=== PATIENT | female | born 1955 | race African-American/Black ===

== ENCOUNTER → 2017-04-16 | Outpatient (CLI) | payer OTHER ==
--- NOTE | 2017-04-19 08:38 | MM ---
Reason for exam: screening (asymptomatic). Last mammogram was performed 5 years and 4 months ago. History: Patient is postmenopausal. Benign FNA biopsy of the left breast, June 24, 2001. Benign ultrasound-guided core biopsy of the left breast, June 24, 2001. Silicone gel implant in the left breast. 2 core biopsies of the left breast. Taking estrogen for 3 years beginning at age 53. Taking progesterone for 3 years beginning at age 53. Physical Findings: A clinical breast exam by your physician is recommended on an annual basis and results should be correlated with mammographic findings. MG Screening Mammo Implant/CAD Bilateral CC and MLO view(s) were taken. ID view(s) were taken of the left breast. Prior study comparison: December 17, 2011, CAD bilateral diagnostic mammogram. July 10, 2008, bilateral diagnostic digital mammog. There are scattered fibroglandular densities. There is chronic nodularity in the right breast. Implant in the left revised since 2011. No significant changes when compared with prior studies. ASSESSMENT: Benign, BI-RAD 2 RECOMMENDATION: Routine screening mammogram of both breasts.
== END | disposition home or self-care (01) ==
LOC: RADMAMWWP 12:39
PROVIDERS: ATTEND Family Medicine
DX: Z12.31 Encounter for screening mammogram for malignant neoplasm of breast (principal)

== ENCOUNTER 2017-08-08 16:05 | Emergency (ER) | payer OTHER ==
--- NOTE | 2017-08-08 16:33 | ED ---
General Adult HPI - General Chief complaint: Shortness of Breath Stated complaint: SOB Time Seen by Provider: 08/08/17 16:05 Source: patient, RN notes reviewed Mode of arrival: wheelchair Limitations: no limitations - History of Present Illness Initial comments: This is a 62-year-old female presents emergency department with past history significant for high blood pressure. Patient comes in today complaining that she was dizzy today and has been on and off for the last couple of weeks. Patient states it comes it only lasts for a few seconds and then it subsides. Patient denies any near syncopal episode. Patient also states she feels as though she somewhat short of breath when these episodes occur. Patient states currently she is not short of breath. 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 Patient states she's had no recent fever or chill. Patient states her legs are of normal size however daughter thinks they are bigger than normal. Patient denies any abdominal pain patient denies nausea vomiting diarrhea. Patient denies any recent fever chills or cough. Patient's main reason for coming in today is the occasional episodes of dizziness and the sensation of being short of breath. As the patient speaks me she's oxygenating 98% on room air and speaking in full sentences without a problem not appearing in any distress and a heart rate in the 80s - Related Data Home Medications Medication Instructions Recorded Confirmed HYDROcodone/APAP 10-325MG [[place] 1 tab PO DAILY PRN 08/08/17 08/08/17 10-325] Ibuprofen [Motrin] 800 mg PO TID PRN 08/08/17 08/08/17 Lisinopril [Zestril] 20 mg PO DAILY 08/08/17 08/08/17 QUEtiapine FUMARATE [SEROquel] 200 mg PO HS 08/08/17 08/08/17 Terazosin HCl 1 mg PO DAILY 08/08/17 08/08/17 Venlafaxine HCl [Effexor XR] 37.5 mg PO DAILY 08/08/17 08/08/17 amLODIPine [Norvasc] 10 mg PO DAILY 08/08/17 08/08/17 Allergies Allergy/AdvReac Type Severity Reaction Status Date / Time morphine AdvReac Nausea & Verified 08/08/17 16:43 Vomiting Review of Systems ROS Statement: Those systems with pertinent positive or pertinent negative responses have been documented in the HPI. ROS Other: All systems not noted in ROS Statement are negative. Past Medical History Past Medical History: Hypertension Additional Past Medical History / Comment(s): chronic back pain History of Any Multi-Drug Resistant Organisms: None Reported Past Surgical History: Hysterectomy, Tonsillectomy Additional Past Surgical History / Comment(s): bilateral foot surgery Past Psychological History: No Psychological Hx Reported Smoking Status: Former smoker Past Alcohol Use History: None Reported Past Drug Use History: None Reported General Exam - General Exam Comments Initial Comments: GENERAL: Patient is well-developed and well-nourished. Patient is nontoxic and well- hydrated and is in no acute distress. Patient does not appear to be having any difficulty breathing and she is giving me her history in non-stop conversation EYES: The sclera were anicteric and conjunctiva were pink and moist. Extraocular movements were intact and pupils were equal round and reactive to light. Eyelids were unremarkable. PULMONARY: Unlabored respirations. Good breath sounds bilaterally. No audible rales rhonchi or wheezing was noted. CARDIOVASCULAR: There is a regular rate and rhythm without any murmurs gallops or rubs. Patient had bilateral radial pulses that were equal ABDOMEN: Soft and nontender with normal bowel sounds. No palpable organomegaly was noted. There is no palpable pulsatile mass. SKIN: Skin is clear with no lesions or rashes and otherwise unremarkable. NEUROLOGIC: Patient is alert and oriented x3. Cranial nerves II through XII are grossly intact. Motor and sensory are also intact. Normal speech, volume and content. Symmetrical smile. MUSCULOSKELETAL: Normal extremities with adequate strength and full range of motion. n minimal edema. LYMPHATICS: No significant lymphadenopathy is noted PSYCHIATRIC: Normal psychiatric evaluation. Normal interpersonal interactions appears functionally intact in deals appropriately with others. No signs of depression. No signs of anxiety. Limitations: no limitations Course Vital Signs 08/08/17 16:11 Temperature 98.0 F Pulse Rate 87 Respiratory 22 Rate Blood Pressure 142/72 O2 Sat by Pulse 97 Oximetry Medical Decision Making - Medical Decision Making EKG shows normal sinus rhythm at a rate of 80 bpm OR interval 172 QRS is 94 QT interval 370 QTC is 435. There is no ST segment elevation or depression. Patient had no symptoms while in the emergency department. - Lab Data Result diagrams: 08/08/17 17:00 08/08/17 17:00 Lab Results 08/08/17 08/08/17 08/08/17 Range/Units 17:00 17:00 17:00 WBC 10.0 (3.8-10.6) k/uL RBC 4.38 (3.80-5.40) m/uL Hgb 11.7 (11.4-16.0) gm/dL Hct 36.4 (34.0-46.0) % MCV 83.1 (80.0-100.0) fL MCH 26.6 (25.0-35.0) pg MCHC 32.0 (31.0-37.0) g/dL RDW 13.5 (11.5-15.5) % Plt Count 239 (150-450) k/uL Neutrophils % 70 % Lymphocytes % 18 % Monocytes % 6 % Eosinophils % 4 % Basophils % 0 % Neutrophils # 7.0 (1.3-7.7) k/uL Lymphocytes # 1.8 (1.0-4.8) k/uL Monocytes # 0.6 (0-1.0) k/uL Eosinophils # 0.4 (0-0.7) k/uL Basophils # 0.0 (0-0.2) k/uL PT (9.0-12.0) sec INR (<1.2) APTT (22.0-30.0) sec Sodium 143 (137-145) mmol/L Potassium 4.0 (3.5-5.1) mmol/L Chloride 107 (98-107) mmol/L Carbon Dioxide 28 (22-30) mmol/L Anion Gap 8 mmol/L BUN 15 (7-17) mg/dL Creatinine 0.68 (0.52-1.04) mg/dL Est GFR (CKD-EPI)AfAm >90 (>60 ml/min/1.73 sqM) Est GFR (CKD-EPI)NonAf >90 (>60 ml/min/1.73 sqM) Glucose 109 H (74-99) mg/dL Calcium 9.5 (8.4-10.2) mg/dL Magnesium 1.7 (1.6-2.3) mg/dL Total Bilirubin 0.2 (0.2-1.3) mg/dL AST 24 (14-36) U/L ALT 28 (9-52) U/L Alkaline Phosphatase 86 (38-126) U/L Total Creatine Kinase 228 H (30-135) U/L CK-MB (CK-2) 2.6 H* (0.0-2.4) ng/mL CK-MB (CK-2) Rel Index 1.1 Troponin I <0.012 (0.000-0.034) ng/mL NT-Pro-B Natriuret Pep pg/mL Total Protein 6.5 (6.3-8.2) g/dL Albumin 4.1 (3.5-5.0) g/dL 08/08/17 08/08/17 Range/Units 17:00 17:00 WBC (3.8-10.6) k/uL RBC (3.80-5.40) m/uL Hgb (11.4-16.0) gm/dL Hct (34.0-46.0) % MCV (80.0-100.0) fL MCH (25.0-35.0) pg MCHC (31.0-37.0) g/dL RDW (11.5-15.5) % Plt Count (150-450) k/uL Neutrophils % % Lymphocytes % % Monocytes % % Eosinophils % % Basophils % % Neutrophils # (1.3-7.7) k/uL Lymphocytes # (1.0-4.8) k/uL Monocytes # (0-1.0) k/uL Eosinophils # (0-0.7) k/uL Basophils # (0-0.2) k/uL PT 10.2 (9.0-12.0) sec INR 1.0 (<1.2) APTT 23.4 (22.0-30.0) sec Sodium (137-145) mmol/L Potassium (3.5-5.1) mmol/L Chloride (98-107) mmol/L Carbon Dioxide (22-30) mmol/L Anion Gap mmol/L BUN (7-17) mg/dL Creatinine (0.52-1.04) mg/dL Est GFR (CKD-EPI)AfAm (>60 ml/min/1.73 sqM) Est GFR (CKD-EPI)NonAf (>60 ml/min/1.73 sqM) Glucose (74-99) mg/dL Calcium (8.4-10.2) mg/dL Magnesium (1.6-2.3) mg/dL Total Bilirubin (0.2-1.3) mg/dL AST (14-36) U/L ALT (9-52) U/L Alkaline Phosphatase (38-126) U/L Total Creatine Kinase (30-135) U/L CK-MB (CK-2) (0.0-2.4) ng/mL CK-MB (CK-2) Rel Index Troponin I (0.000-0.034) ng/mL NT-Pro-B Natriuret Pep 148 pg/mL Total Protein (6.3-8.2) g/dL Albumin (3.5-5.0) g/dL Disposition Clinical Impression: Dizziness Disposition: HOME SELF-CARE Instructions: Dizziness (ED) Referrals: Cele Harper MD [Primary Care Provider] - 1-2 days Time of Disposition: 18:25
[2017-08-08 17:16] LABS: Basophils % (A) 0 %; Eosinophils # (A) 0.4 k/uL (0-0.7); Eosinophils % (A) 4 %; HCT 36.4 % (34.0-46.0); HGB 11.7 gm/dL (11.4-16.0); Lymphocytes # (A) 1.8 k/uL (1.0-4.8); Lymphocytes % (A) 18 %; MCH 26.6 pg (25.0-35.0); MCV 83.1 fL (80.0-100.0); Mean Platelet Volume 7.2; Monocytes # (A) 0.6 k/uL (0-1.0); Monocytes % (A) 6 %; Neutrophils % (A) 70 %; Platelet Count 239 k/uL (150-450); RBC 4.38 m/uL (3.80-5.40); RDW 13.5 % (11.5-15.5)
[2017-08-08 17:26] LABS: ALT 28 U/L (9-52); AST 24 U/L (14-36); Albumin 4.1 g/dL (3.5-5.0); Alkaline Phosphatase 86 U/L (38-126); Anion Gap 8 mmol/L; Blood Urea Nitrogen 15 mg/dL (7-17); Calcium 9.5 mg/dL (8.4-10.2); Carbon Dioxide 28 mmol/L (22-30); Chloride 107 mmol/L (98-107); Creatine Kinase 228 U/L (30-135); Glucose 109 mg/dL (74-99); Magnesium 1.7 mg/dL (1.6-2.3); Partial Thromboplastin Time 23.4 sec (22.0-30.0); Prothrombin Time 10.2 sec (9.0-12.0); Sodium 143 mmol/L (137-145); Total Bilirubin 0.2 mg/dL (0.2-1.3); Total Protein 6.5 g/dL (6.3-8.2)
[2017-08-08 17:37] LABS: Troponin I <0.012 ng/mL (0.000-0.034)
[2017-08-08 17:39] LABS: Creatine Kinase MB 2.6 ng/mL (0.0-2.4)
--- NOTE | 2017-08-08 17:42 | XR ---
EXAMINATION TYPE: XR chest 2V DATE OF EXAM: 08/08/2017 COMPARISON: 04/09/2015 HISTORY: To be TECHNIQUE: Frontal and lateral views of the chest are obtained. FINDINGS: There is stable elevation of the left hemidiaphragm and small left pleural effusion/pleura l-parenchymal opacity. There is unchanged rightward mediastinal shift. No acute finding is seen in co mparison to the prior. No new focal consolidation, right pleural effusion or pneumothorax. Cardiomedi astinal silhouette is within normal limits. Mild multilevel degenerative changes of the thoracic spin e. IMPRESSION: Chronic changes of the left hemithorax with no acute cardiopulmonary process.
--- NOTE | 2017-08-08 17:44 | CT ---
EXAMINATION TYPE: CT brain wo con DATE OF EXAM: 08/08/2017 COMPARISON: NONE HISTORY: Dizziness. CT DLP: 1041.9 mGycm Automated exposure control for dose reduction was used. TECHNIQUE: CT scan of the head is performed without contrast. FINDINGS: There is no acute intracranial hemorrhage, mass effect, or midline shift identified. The ventricles and sulci are within normal limits in size. The globes are intact and the visualized sinuses are toro ar. IMPRESSION: No acute intracranial hemorrhage, mass effect, or midline shift is seen.
[2017-08-08 18:32] VITALS: BP 151/70; PULSE 72; RESP 18; TEMP 97.8
== END 2017-08-08 18:32 | disposition home or self-care (01) ==
LOC: EC 16:05
DX: R42 Dizziness and giddiness (principal); R06.02 Shortness of breath; I10 Essential (primary) hypertension; Z87.891 Personal history of nicotine dependence; Z79.899 Other long term (current) drug therapy; Z88.5 Allergy status to narcotic agent
CPT/HCPCS: 36415; 70450; 71046; 80053; 82550; 82553; 83735; 83880; 84484; 85025; 85610; 85730; 93005; 99285

== ENCOUNTER 2017-12-09 22:15 | Emergency (ER) | payer OTHER ==
[2017-12-09 22:31] VITALS: BP 181/68; PULSE 97; RESP 18; TEMP 98.6
[2017-12-09] MEDS ORDERED: DIPH,PERTUS(ACELL)TETVAC-LF 0.5 ML VIAL IM ONE (23:02)
[2017-12-09] MEDS ORDERED: LIDOCAINE 1% (PF) 10MG/ML VIAL SQ STA (23:23)
[2017-12-09] MEDS ORDERED: LIDOCAINE 1% INJ 10MG/ML (20 ML MDV) SQ ONE (23:28)
--- NOTE | 2017-12-09 23:36 | ED ---
Wound/Laceration HPI - General Chief Complaint: Wound/Laceration Stated Complaint: finger lac Time Seen by Provider: 12/09/17 22:39 Source: patient, RN notes reviewed, old records reviewed Mode of arrival: ambulatory Limitations: no limitations - History of Present Illness Initial Comments: This patient is a 62 year old female with left index finger tip laceration after she cut it on a fur trimmer this evening. She reports that she has normal sensation and full ROM of finger. TDAP is not up to date. No other injury. - Related Data Home Medications Medication Instructions Recorded Confirmed HYDROcodone/APAP 10-325MG [[place] 1 tab PO DAILY PRN 08/08/17 08/08/17 10-325] Ibuprofen [Motrin] 800 mg PO TID PRN 08/08/17 08/08/17 Lisinopril [Zestril] 20 mg PO DAILY 08/08/17 08/08/17 QUEtiapine FUMARATE [SEROquel] 200 mg PO HS 08/08/17 08/08/17 Terazosin HCl 1 mg PO DAILY 08/08/17 08/08/17 Venlafaxine HCl [Effexor XR] 37.5 mg PO DAILY 08/08/17 08/08/17 amLODIPine [Norvasc] 10 mg PO DAILY 08/08/17 08/08/17 Allergies Allergy/AdvReac Type Severity Reaction Status Date / Time morphine AdvReac Nausea & Verified 12/09/17 22:31 Vomiting Review of Systems ROS Statement: Those systems with pertinent positive or pertinent negative responses have been documented in the HPI. ROS Other: All systems not noted in ROS Statement are negative. Past Medical History Past Medical History: Hypertension Additional Past Medical History / Comment(s): chronic back pain History of Any Multi-Drug Resistant Organisms: None Reported Past Surgical History: Hysterectomy, Tonsillectomy Additional Past Surgical History / Comment(s): bilateral foot surgery Past Psychological History: No Psychological Hx Reported Smoking Status: Former smoker Past Alcohol Use History: None Reported Past Drug Use History: None Reported General Exam - General Exam Comments Initial Comments: Well appearing 62 year old [place], no distress. Limitations: no limitations Head exam: Present: atraumatic, normocephalic, normal inspection Eye exam: Present: normal appearance, PERRL, EOMI. Absent: scleral icterus, conjunctival injection, periorbital swelling ENT exam: Present: normal exam, mucous membranes moist Neck exam: Present: normal inspection. Absent: tenderness, meningismus, lymphadenopathy Respiratory exam: Present: normal lung sounds bilaterally. Absent: respiratory distress, wheezes, rales, rhonchi, stridor Cardiovascular Exam: Present: regular rate, normal rhythm, normal heart sounds. Absent: systolic murmur, diastolic murmur, rubs, gallop, clicks Extremities exam: Present: normal inspection, full ROM, normal capillary refill. Absent: tenderness, pedal edema, joint swelling, calf tenderness Left Hand Wrist exam: Present: laceration Hand L/R Front: 1 - laceration (2cm) Back exam: Present: normal inspection Neurological exam: Present: alert, oriented X3, CN II-XII intact Course Vital Signs 12/09/17 22:29 Temperature 98.6 F Pulse Rate 97 Respiratory 18 Rate Blood Pressure 181/68 O2 Sat by Pulse 95 Oximetry Procedures - Laceration Laceration #1 Site: hand (left index finger) Size (cm): 2 Description: irregular Anesthetic Used: lidocaine 1% Anesthesia Technique: local infiltration (2) Amount (mls): 2 Pre-repair: wound explored, irrigated extensively Type of Sutures: vicryl Size of Sutures: 6-0 Number of Sutures: 3 Technique: simple, interrupted Patient Tolerated Procedure: well, no complications Medical Decision Making - Medical Decision Making This is a 62 year old female with left index finger laceration from fur trimmer. She has a 2cm laceration over tip, no nail involvement. Patient wound was irrigated and she was given TDAP.Wound well approximated with 3 stures. Tube Gauze and bacitracin applied. Discussed suture care and return parameter discussed including monitoring for infection. - Radiology Data Radiology results: report reviewed Soft tisuse laceration, no bony abnormalities. Disposition Clinical Impression: Finger laceration Disposition: HOME SELF-CARE Condition: Good Instructions: Care For Your Stitches (ED), Laceration (ED) Additional Instructions: Please return to the emergency room in 8-10 days to have sutures removed. Please leave wound covered for the first 24-48 hours and then leave open to air after that time. Please use clean soap and water to clean the suture area to prevent scabbing over the top of your sutures. Please watch for any signs of infection which may include but not limited to increased pain, swelling, redness , fever or chills. Please return to the emergency room if any signs of infection do occur. Please return to the emergency room for any other concerns or complications. Is patient prescribed a controlled substance at d/c from ED?: No When asked, does pt state using other controlled substances?: No If prescribed controlled substance>3 days was MAPS reviewed?: No If opioid is for acute pain is fill amount 7 days or less?: No If Rx opioid, was Start Talking consent form obtained?: No Referrals: Cele Harper MD [Primary Care Provider] - 1-2 days Time of Disposition: 23:35
--- NOTE | 2017-12-10 00:08 | XR ---
EXAMINATION TYPE: XR finger LT DATE OF EXAM: 12/09/2017 COMPARISON: NONE HISTORY: Laceration at the tip of the finger TECHNIQUE: 3 views FINDINGS: I see no fracture nor dislocation. Joint spaces are normal. There is some mild soft tissue deformity at the tip of the index finger. IMPRESSION: Soft tissue laceration. No fracture seen. No sign of a foreign body.
== END 2017-12-09 23:59 | disposition home or self-care (01) ==
LOC: EC 22:15
DX: S61.211A Laceration without foreign body of left index finger without damage to nail, initial encounter (principal); I10 Essential (primary) hypertension; Z87.891 Personal history of nicotine dependence; Z79.899 Other long term (current) drug therapy; Z88.5 Allergy status to narcotic agent; Z23 Encounter for immunization; Z53.8 Procedure and treatment not carried out for other reasons; W27.8XXA Contact with other nonpowered hand tool, initial encounter; Y92.89 Other specified places as the place of occurrence of the external cause
CPT/HCPCS: 73140; 90715; 99283; 12001; 90471; J2001

== ENCOUNTER → 2018-03-29 | Outpatient (CLI) | payer OTHER ==
--- NOTE | 2018-03-29 15:56 | MR ---
EXAMINATION TYPE: MR thoracic spine wo con DATE OF EXAM: 03/29/2018 2:00 PM COMPARISON: NONE HISTORY: Pain in thoracic spine, prior injury 2005 Multiplanar MultiSpin echo imaging of the thoracic spine was performed. Disc spaces: Mild multilevel degenerative disc desiccation noted with disc bulging at T5-6 through T1 0-11. No evidence of disc herniation or central stenosis. Ventral spondylosis identified. Spinal canal: No evidence for canal stenosis. No intrinsic or extrinsic lesion. Thoracic spinal cord: Thoracic spinal cord is of normal caliber and signal. Paraspinal soft tissues: No evidence for paraspinal mass. No destructive lesions seen. Vertebral segments: No evidence for fracture or bony lesion. IMPRESSION: 1. Disc desiccation as noted above disc bulging and spondylosis.
== END | disposition home or self-care (01) ==
LOC: RADMRIMAIN 13:15
PROVIDERS: ATTEND Physician Assistant
DX: M51.24 Other intervertebral disc displacement, thoracic region (principal); M47.814 Spondylosis without myelopathy or radiculopathy, thoracic region; Z88.5 Allergy status to narcotic agent
CPT/HCPCS: 72146

== ENCOUNTER → 2018-03-30 | Outpatient (CLI) | payer OTHER ==
--- NOTE | 2018-03-31 02:35 | MR ---
EXAMINATION TYPE: MR lumbar spine wo con DATE OF EXAM: 03/30/2018 COMPARISON: HISTORY: Low back pain TECHNIQUE: Multiplanar, multisequence images of the lumbar spine were acquired. Lumbar vertebra have fairly normal alignment. There is a few millimeter anterior subluxation of L4 in relation to L5. The lumbar nerve roots appear normal. The neuroforamina are fairly well-maintained. There is no compression fracture. There is no lumbar paraspinal mass. Posterior elements appear intac t. IMPRESSION: There is a mild degenerative first-degree L4-5 spondylolisthesis without change compared to 10/26/2014 . No fracture seen. No spinal stenosis.
== END ==
LOC: RADMRIMAIN 13:06
PROVIDERS: ATTEND Psychiatry & Neurology Neurology
DX: M43.16 Spondylolisthesis, lumbar region (principal); M47.816 Spondylosis without myelopathy or radiculopathy, lumbar region; Z88.5 Allergy status to narcotic agent
CPT/HCPCS: 72148

== ENCOUNTER → 2018-11-03 | Outpatient (CLI) | payer OTHER ==
--- NOTE | 2018-11-04 15:04 | MM ---
Reason for exam: screening (asymptomatic). Last mammogram was performed 1 year and 7 months ago. History: Patient is postmenopausal. Benign FNA biopsy of the left breast, June 24, 2001. Benign ultrasound-guided core biopsy of the left breast, June 24, 2001. Silicone gel implant in the left breast. 2 core biopsies of the left breast. Taking estrogen for 3 years beginning at age 53. Taking progesterone for 3 years beginning at age 53. Physical Findings: A clinical breast exam by your physician is recommended on an annual basis and results should be correlated with mammographic findings. MG Screening Mammo Implant/CAD Bilateral CC, MLO, and XCCL view(s) were taken. ID view(s) were taken of the left breast. Prior study comparison: April 16, 2017, bilateral MG screening mammo implant/CAD. December 17, 2011, CAD bilateral diagnostic mammogram. The breast tissue is heterogeneously dense. This may lower the sensitivity of mammography. Benign appearing bilateral calcifications. No suspicious abnormality. Prepectoral silicone left implant. ASSESSMENT: Benign, BI-RAD 2 RECOMMENDATION: Routine screening mammogram of both breasts in 1 year.
== END | disposition home or self-care (01) ==
LOC: RADMAMWWP 12:47
PROVIDERS: ATTEND Family Medicine
DX: Z12.31 Encounter for screening mammogram for malignant neoplasm of breast (principal)
CPT/HCPCS: 77067

== ENCOUNTER → 2019-06-28 | Outpatient (CLI) | payer OTHER ==
--- NOTE | 2019-06-29 04:50 | MR ---
EXAMINATION TYPE: MR ankle LT wo con DATE OF EXAM: 06/28/2019 COMPARISON: HISTORY: lt ankle pain Multiplanar multiecho imaging of the left ankle was performed without contrast. Ankle mortise is anatomic. The collateral ligaments appear intact. Achilles tendon is intact. The med ial and lateral flexor tendons of the ankle appear intact. There is subcutaneous edema around the ank le. Plantar fascia appears intact. Subtalar joint is intact. I see no focal bone destruction. There i s no evidence of a fracture. IMPRESSION: No fracture seen. No evidence of ligament or tendon tear. Moderate subcutaneous edema around the ankl e.
== END | disposition home or self-care (01) ==
LOC: RADMRIMAIN 19:38
PROVIDERS: ATTEND Orthopaedic Surgery
DX: M19.071 Primary osteoarthritis, right ankle and foot (principal); M19.072 Primary osteoarthritis, left ankle and foot; M20.11 Hallux valgus (acquired), right foot; I10 Essential (primary) hypertension; Z87.891 Personal history of nicotine dependence

== ENCOUNTER → 2019-07-11 | Outpatient (CLI) | payer OTHER ==
--- NOTE | 2019-07-12 05:26 | MR ---
EXAMINATION TYPE: MR ankle RT wo con DATE OF EXAM: 07/11/2019 COMPARISON: None HISTORY: R foot pain and r ankle pain Multiplanar multiecho imaging of the right ankle was performed without contrast. Ankle mortise is anatomic. Ankle joint space is fairly normal. Achilles tendon is intact. Plantar fas ofelia appears intact. There is mild ankle joint effusion. The medial and lateral flexor tendons appear intact. There is minor spurring at the talonavicular joint. The collateral ligaments appear intact. T here is no evidence of a fracture. There is mild subcutaneous edema around the mid foot. IMPRESSION: Mild arthritic changes at the talonavicular joint. No evidence of ligament or tendon tear. Mild ankle joint effusion consistent with synovitis. No fracture seen.
== END | disposition home or self-care (01) ==
LOC: RADMRIMAIN 12:07
PROVIDERS: ATTEND Orthopaedic Surgery
DX: M19.071 Primary osteoarthritis, right ankle and foot (principal)

== ENCOUNTER → 2019-10-17 | Outpatient (CLI) | payer OTHER ==
[2019-10-17 19:51] LABS: Centromere Antibody <0.2 AI; Centromere Antibody Interp NEGATIVE (NEGATIVE); Scleroderma SC-70 Ab <0.2 AI
[2019-10-17 19:57] LABS: Cardiolipin Ab IgG Interp NEGATIVE (NEGATIVE); Cardiolipin Ab IgM Interp NEGATIVE (NEGATIVE); Cardiolipin IgA Antibody 0.8 U/mL
[2019-10-18 13:44] LABS: APTT 42 Sec(s) (<43); DRVVT 1:1 Mix 41 Sec(s) (<44); Dilute Russell Viper Venom 51 Sec(s) (<44)
== END | disposition home or self-care (01) ==
LOC: LABWHC1 12:19
PROVIDERS: ATTEND Family Medicine
DX: M25.50 Pain in unspecified joint (principal); M79.10 Myalgia, unspecified site; M79.669 Pain in unspecified lower leg; R76.0 Raised antibody titer
CPT/HCPCS: 36415; 82728; 85613; 85730; 86038; 86147; 86162; 86235

== ENCOUNTER → 2021-01-02 | Outpatient (CLI) | payer OTHER ==
--- NOTE | 2021-01-02 12:52 | US ---
EXAMINATION TYPE: US abdomen complete DATE OF EXAM: 01/02/2021 COMPARISON: Ultrasound abdomen May 26, 2013 CLINICAL HISTORY: R11.0 chronic nausea. Pt states chronic nausea EXAM MEASUREMENTS: Liver Length: 14.1 cm Gallbladder Wall: 0.2 cm CBD: 0.4 cm Spleen: 8.8 cm Right Kidney: 10.5 x 4.4 x 4.6 cm Left Kidney: 10.9 x 5.6 x 5.1 cm Pancreas: Obscured by bowel gas Liver: wnl Gallbladder: wnl Evidence for sonographic Schroeder's sign: No CBD: wnl Spleen: wnl Right Kidney: wnl Left Kidney: wnl Upper IVC: wnl Abd Aorta: wnl No abnormality visualized at this time to account for pt's symptoms The liver is homogenous. The intrahepatic portion of the IVC and visualized abdominal aorta are with in normal limits. There is no evidence of shadowing mobile cholelithiasis. Gallbladder has distended margins. Common bile duct is unremarkable. Suboptimal evaluation of pancreas on initial images due t o overlying bowel gas. The spleen is unremarkable. Kidneys are symmetric and free of hydronephrosis . No renal lesions are seen. IMPRESSION: Suboptimal evaluation of pancreas otherwise unremarkable study
== END | disposition home or self-care (01) ==
LOC: RADUSWWP 12:04
PROVIDERS: ATTEND Family Medicine
DX: R11.0 Nausea (principal)
CPT/HCPCS: 76700

== ENCOUNTER 2021-01-29 08:26 | Day surgery (SDC) | payer OTHER ==
[2021-01-24 15:52] VITALS: BMI 41.1
[~2021-01-29 08:26] MED LIST: LACTATED RINGERS 1,000 ML IV SCH; LIDOCAINE 1% (10MG/ML) FOR IV START INTRADERMA PRN
[2021-01-29 08:46] VITALS: TEMP 97.7
[2021-01-29] MEDS ORDERED: LACTATED RINGERS 1,000 ML IV ONE (08:46)
[2021-01-29] MEDS ORDERED: PROPOFOL 10 MG/ML 20 ML VIAL IV ONE (09:15)
--- NOTE | 2021-01-29 09:29 | P.PCN ---
Date of Procedure: 01/29/21 Procedure(s) Performed: BRIEF HISTORY: Patient is a 65-year-old, pleasant, female scheduled for an upper endoscopy as a part of evaluation of chronic nausea and epigastric pain for the last several years duration. She also complains of epigastric discomfort. She reports no emesis. She has been on omeprazole 20 mg daily with no help.. PROCEDURE PERFORMED: Esophagogastroduodenoscopy with biopsy. PREOPERATIVE DIAGNOSIS: Epigastric pain and chronic persistent nausea of several years duration IV sedation per anesthesia. PROCEDURE: After informed consent was obtained, the patient was brought into the endoscopy unit. IV sedation was administered by Anesthesia under continuous monitoring. Initially the Olympus GIF-140 video endoscope was inserted into the mouth. Esophagus intubated without any difficulty. It was gradually advanced into the stomach and duodenum and carefully examined. The bulb and the second part of the duodenum appeared normal. The scope at this time was withdrawn to the stomach, adequately insufflated with air, and upon careful examination, mucosa of the antrum and mild gastritis and biopsies were done from this area. The, body, cardia and the fundus appeared normal. Small amount of food in the stomach suggestive of gastroparesis. There was no evidence of gastric outlet obstruction. The scope was then withdrawn into the esophagus. The GE junction was located at 39 cm from the incisors. The esophagus appeared normal. There were no erosions or ulcerations seen and the patient tolerated the procedure well. IMPRESSION: 1. Small amount of retained food in the stomach suggestive of gastroparesis. 2. No evidence of gastric outlet obstruction. 3. Mild antral gastritis RECOMMENDATIONS: The findings of this examination were discussed with the patient well as her family. She was advised to follow with the biopsy results. In the meantime she was advised to continue with omeprazole 20 mg daily and start him small frequent meals..
[2021-01-29 10:03] VITALS: BP 135/80; PULSE 75; RESP 16
== END 2021-01-29 10:18 | disposition home or self-care (01) ==
LOC: ORWHC2ENDO 08:26
PROVIDERS: ATTEND Internal Medicine Gastroenterology
DX: K29.50 Unspecified chronic gastritis without bleeding (principal); R10.13 Epigastric pain; R11.0 Nausea
CPT/HCPCS: 43239; J2704; 88305

== ENCOUNTER 2021-02-27 09:08 | Emergency (ER) | payer OTHER ==
[2021-02-27 09:13] VITALS: TEMP 99.3
[2021-02-27] MEDS ORDERED: SODIUM CHLORIDE 0.9% 1,000 ML IV STA (09:25)
[2021-02-27] MEDS ORDERED: methylPREDNISolone SOD SUCCI 125 MG/2 ML VIAL IV STA (09:25)
[2021-02-27] MEDS ORDERED: FAMOTIDINE 20 MG/2 ML VIAL IV STA (09:25)
[2021-02-27] MEDS ORDERED: diphenhydrAMINE 50 MG/ML 1 ML VIAL IVP STA (09:25)
[2021-02-27 10:01] LABS: Basophils % (A) 0 %; Eosinophils # (A) 0.2 k/uL (0-0.7); Eosinophils % (A) 1 %; HCT 37.5 % (34.0-46.0); HGB 12.1 gm/dL (11.4-16.0); Lymphocytes # (A) 1.5 k/uL (1.0-4.8); Lymphocytes % (A) 11 %; MCHC 32.3 g/dL (31.0-37.0); MCV 86.8 fL (80.0-100.0); Mean Platelet Volume 6.8; Monocytes # (A) 0.2 k/uL (0-1.0); Monocytes % (A) 2 %; Neutrophils # (A) 11.7 k/uL (1.3-7.7); Neutrophils % (A) 85 %; Platelet Count 378 k/uL (150-450); RBC 4.33 m/uL (3.80-5.40); RDW 13.3 % (11.5-15.5); WBC 13.7 k/uL (3.8-10.6)
[2021-02-27 10:20] LABS: ALT 24 U/L (4-34); AST 31 U/L (14-36); African American GFR (CKD) >90 (>60 ml/min/1.73 sqM); Albumin 3.4 g/dL (3.5-5.0); Alkaline Phosphatase 80 U/L (38-126); Anion Gap 5 mmol/L; Blood Urea Nitrogen 11 mg/dL (7-17); Carbon Dioxide 26 mmol/L (22-30); Chloride 106 mmol/L (98-107); Glucose 116 mg/dL (74-99); Non-African American GFR(CKD) 85 (>60 ml/min/1.73 sqM); Potassium 4.1 mmol/L (3.5-5.1); Sodium 137 mmol/L (137-145); Total Bilirubin 0.3 mg/dL (0.2-1.3)
--- NOTE | 2021-02-27 10:34 | ED ---
Allergic Reaction HPI - General Chief complaint: Allergic Reaction Stated complaint: Allergic reaction Time Seen by Provider: 02/27/21 09:19 Source: patient, RN notes reviewed Mode of arrival: ambulatory Limitations: no limitations - History of Present Illness Initial Comments: Patient is a 65-year-old female that presents to emergency department compla ining of a ongoing ALLERGIC reaction for the past 2 weeks. She notes that she was seen by primary care given a Medrol Dosepak and ALLERGY medication. She is unsure of what is causing the ALLERGIES. She was otherwise a well-appearing 65 to female. She notes that the constant itching is most distressing part. She notes that she has not having any difficulties breathing eating swallowing. She was otherwise well-appearing. She denied chest pain shortness of breath headache nausea vomiting diarrhea constipation fever fatigue chills. - Related Data Home Medications Medication Instructions Recorded Confirmed Terazosin HCl 1 mg PO DAILY 08/08/17 01/24/21 Venlafaxine HCl [Effexor XR] 37.5 mg PO DAILY 08/08/17 01/24/21 amLODIPine [Norvasc] 10 mg PO DAILY 08/08/17 01/24/21 lisinopriL [Zestril] 20 mg PO DAILY 08/08/17 01/24/21 HYDROcodone/APAP 7.5-325MG [[place] 1 tab PO Q4-6H PRN 01/24/21 01/24/21 7.5-325] Zolpidem [Ambien] 10 mg PO HS PRN 01/24/21 01/24/21 hydroCHLOROthiazide 12.5 mg PO DAILY 01/24/21 01/24/21 Allergies Allergy/AdvReac Type Severity Reaction Status Date / Time morphine AdvReac Nausea & Verified 02/27/21 09:09 Vomiting Review of Systems ROS Statement: Those systems with pertinent positive or pertinent negative responses have been documented in the HPI. ROS Other: All systems not noted in ROS Statement are negative. Past Medical History Past Medical History: Hypertension Additional Past Medical History / Comment(s): chronic back pain History of Any Multi-Drug Resistant Organisms: None Reported Past Surgical History: Hysterectomy, Tonsillectomy Additional Past Surgical History / Comment(s): bilateral foot surgery Past Psychological History: No Psychological Hx Reported Smoking Status: Former smoker Past Alcohol Use History: None Reported Past Drug Use History: None Reported General Exam Limitations: no limitations General appearance: alert, in no apparent distress Head exam: Present: atraumatic, normocephalic, normal inspection Eye exam: Present: normal appearance, PERRL, EOMI. Absent: scleral icterus, conjunctival injection, periorbital swelling ENT exam: Present: normal exam, mucous membranes moist Neck exam: Present: normal inspection Respiratory exam: Present: normal lung sounds bilaterally. Absent: respiratory distress, wheezes, rales, rhonchi, stridor Cardiovascular Exam: Present: regular rate, normal rhythm, normal heart sounds. Absent: systolic murmur, diastolic murmur, rubs, gallop, clicks GI/Abdominal exam: Present: soft, normal bowel sounds. Absent: distended, tenderness, guarding, rebound, rigid Extremities exam: Present: normal inspection, full ROM, normal capillary refill. Absent: tenderness, pedal edema, joint swelling, calf tenderness Neurological exam: Present: alert, oriented X3 Psychiatric exam: Present: normal affect, normal mood Skin exam: Present: warm, dry, intact, normal color, urticaria (On face bilateral lower extremities bilateral upper extremities,). Absent: rash Course Vital Signs 02/27/21 09:10 Temperature 99.3 F Pulse Rate 104 H Respiratory 18 Rate Blood Pressure 138/73 O2 Sat by Pulse 98 Oximetry Medical Decision Making - Medical Decision Making 65-year-old female complaining of ALLERGIC reaction. CBC, CMP, 1 L normal saline, 125 mg Solu-Medrol, 50 mg of Benadryl, 20 mg of Pepcid ordered. Labs: Mild leukocytosis white blood cells 13.5, rest labs unremarkable. Patient is feeling mildly better after medications and fluids. Patient was informed that she wanted to follow-up with an hotel yardperson, she is agreeable with this discharge plan. Case discussed with Dr. Diego, patient discharge home. - Lab Data Result diagrams: 02/27/21 09:51 02/27/21 09:51 Lab Results 02/27/21 02/27/21 Range/Units 09:51 09:51 WBC 13.7 H (3.8-10.6) k/uL RBC 4.33 (3.80-5.40) m/uL Hgb 12.1 (11.4-16.0) gm/dL Hct 37.5 (34.0-46.0) % MCV 86.8 (80.0-100.0) fL MCH 28.0 (25.0-35.0) pg MCHC 32.3 (31.0-37.0) g/dL RDW 13.3 (11.5-15.5) % Plt Count 378 (150-450) k/uL MPV 6.8 Neutrophils % 85 % Lymphocytes % 11 % Monocytes % 2 % Eosinophils % 1 % Basophils % 0 % Neutrophils # 11.7 H (1.3-7.7) k/uL Lymphocytes # 1.5 (1.0-4.8) k/uL Monocytes # 0.2 (0-1.0) k/uL Eosinophils # 0.2 (0-0.7) k/uL Basophils # 0.0 (0-0.2) k/uL Sodium 137 (137-145) mmol/L Potassium 4.1 (3.5-5.1) mmol/L Chloride 106 (98-107) mmol/L Carbon Dioxide 26 (22-30) mmol/L Anion Gap 5 mmol/L BUN 11 (7-17) mg/dL Creatinine 0.75 (0.52-1.04) mg/dL Est GFR (CKD-EPI)AfAm >90 (>60 ml/min/1.73 sqM) Est GFR (CKD-EPI)NonAf 85 (>60 ml/min/1.73 sqM) Glucose 116 H (74-99) mg/dL Calcium 9.0 (8.4-10.2) mg/dL Total Bilirubin 0.3 (0.2-1.3) mg/dL AST 31 (14-36) U/L ALT 24 (4-34) U/L Alkaline Phosphatase 80 (38-126) U/L Total Protein 6.0 L (6.3-8.2) g/dL Albumin 3.4 L (3.5-5.0) g/dL Disposition Clinical Impression: Allergic reaction Disposition: HOME SELF-CARE Condition: Stable Instructions (If sedation given, give patient instructions): General Allergic Reaction (ED) Additional Instructions: Please return to the Emergency Department if symptoms worsen or any other concerns. Follow-up with primary care 1-2 days. Follow-up with hotel yardperson as soon as possible. Take [id number] Benadryl as needed. Use [id number] topical creams for itch. Is patient prescribed a controlled substance at d/c from ED?: No Referrals: Cele Harper MD [Primary Care Provider] - 1-2 days Angelica Moses DO [STAFF PHYSICIAN] - 1-2 days Time of Disposition: 11:25
[2021-02-27 12:02] VITALS: BP 146/79; PULSE 90; RESP 20
== END 2021-02-27 11:48 | disposition home or self-care (01) ==
LOC: EC 09:08
DX: T78.40XA Allergy, unspecified, initial encounter (principal); D72.829 Elevated white blood cell count, unspecified; I10 Essential (primary) hypertension; Z87.891 Personal history of nicotine dependence; Z79.899 Other long term (current) drug therapy
CPT/HCPCS: 36415; 80053; 85025; 96361; 96374; 96375; 99283

== ENCOUNTER → 2021-03-07 | Outpatient (CLI) | payer OTHER ==
[2021-03-07 22:48] LABS: Basophils # (A) 0.04 X 10*3/uL (0.00-0.10); Basophils % (A) 0.4 %; Eosinophils % (A) 2.7 %; HCT 42.7 % (37.2-46.3); HGB 13.1 g/dL (12.0-15.0); Lymphocytes # (A) 1.75 X 10*3/uL (0.90-5.00); Lymphocytes % (A) 15.6 %; MCH 26.7 pg (27.0-32.0); MCHC 30.7 g/dL (32.0-37.0); MCV 87.1 fL (80.0-97.0); Mean Platelet Volume 9.8 fL (9.5-12.2); Monocytes # (A) 0.52 X 10*3/uL (0.20-1.00); Monocytes % (A) 4.6 %; Neutrophils # (A) 8.55 X 10*3/uL (1.80-7.70); Neutrophils % (A) 76.3 %; Platelet Count 380 X 10*3/uL (140-440); RDW 13.6 % (11.5-14.5); WBC 11.21 X 10*3/uL (4.50-10.00)
[2021-03-08 00:26] LABS: Erythrocyte Sedimentation Rate 22 mm/Hr (0-30)
[2021-03-08 05:20] LABS: ALT 55 U/L (8-44); AST 47 U/L (13-35); African American GFR (CKD) 78.4 (60.0-200.0); Albumin 4.3 g/dL (3.8-4.9); Albumin/Globulin Ratio 1.89 (1.60-3.17); Alkaline Phosphatase 94 U/L (41-126); BUN/Creat Ratio 10.51 Ratio (12.00-20.00); Blood Urea Nitrogen 9.5 mg/dL (9.0-27.0); Calcium 9.8 mg/dL (8.7-10.3); Carbon Dioxide 27.3 mmol/L (21.6-31.8); Chloride 102 mmol/L (96-109); Globulin 2.3 g/dL (1.6-3.3); Glucose 112 mg/dL (70-110); Non-African American GFR(CKD) 67.7 (60.0-200.0); Potassium 4.8 mmol/L (3.5-5.5); Sodium 141 mmol/L (135-145); Total Bilirubin <0.20 mg/dL (0.30-1.20); Total Protein 6.6 g/dL (6.2-8.2)
== END | disposition home or self-care (01) ==
LOC: LABWHC1 14:53
PROVIDERS: ATTEND Internal Medicine
DX: L50.9 Urticaria, unspecified (principal)
CPT/HCPCS: 36415; 80053; 84443; 85025; 85652; 86038; 86140; 86160

== ENCOUNTER → 2021-10-01 | Outpatient (CLI) | payer MEDICARE, OTHER ==
--- NOTE | 2021-10-03 11:46 | MM ---
Reason for exam: screening (asymptomatic). Last mammogram was performed 2 years and 11 months ago. History: Patient is postmenopausal. Benign FNA biopsy of the left breast, June 24, 2001. Benign ultrasound-guided core biopsy of the left breast, June 24, 2001. Silicone gel implant in the left breast. 2 core biopsies of the left breast. Taking estrogen for 3 years beginning at age 53. Taking progesterone for 3 years beginning at age 53. Physical Findings: A clinical breast exam by your physician is recommended on an annual basis and results should be correlated with mammographic findings. MG Screening Mammo Implant/CAD Bilateral CC and MLO view(s) were taken. ID view(s) were taken of the left breast. Prior study comparison: November 03, 2018, bilateral MG screening mammo implant/CAD. April 16, 2017, bilateral MG screening mammo implant/CAD. There are scattered fibroglandular densities. There is stable chronic nodularity bilaterally with benign stable calcifications. There is no discrete abnormality. Left subglandular implant redemonstrated. ASSESSMENT: Benign, BI-RAD 2 RECOMMENDATION: Routine screening mammogram of both breasts in 1 year.
== END | disposition home or self-care (01) ==
LOC: RADMAMWWP 14:52
PROVIDERS: ATTEND Family Medicine
DX: Z12.31 Encounter for screening mammogram for malignant neoplasm of breast (principal); Z78.0 Asymptomatic menopausal state
CPT/HCPCS: 77067

== ENCOUNTER → 2021-10-29 | Outpatient (CLI) | payer MEDICARE, OTHER ==
--- NOTE | 2021-10-29 17:16 | CONS ---
CONSULTATION DATE OF SERVICE: 10/29/2021 This 66-year-old lady has been evaluated in [facility] for multiple awakenings from sleep and difficulties initiating sleep; possible obstructive sleep apnea-hypopnea syndrome. HISTORY OF PRESENT ILLNESS/SLEEP-WAKE EVALUATION: Patient's usual sleep schedule is from 9 or 10 p.m. until 9 a.m. She does have problems with falling asleep and usually sleeps on the side or stomach position. She has been told by her family that she snores. She wakes up from sleep several times with 3 episodes of nocturia. Sometimes she grinds her teeth. Positive history of hot flashes during the night. No history of hypnagogic hallucinations, sleep paralysis or cataplexy. [place] Sleepiness Scale is 4. PAST MEDICAL HISTORY: Positive for hypertension, fibromyalgia, episodes of headaches, back problems, sciatic nerve problems. PAST SURGICAL HISTORY: Tonsillectomy, partial hysterectomy. MEDICATIONS: Amlodipine, Lisinopril, venlafaxine, [place]. SOCIAL HISTORY: Negative for smoking or using alcohol. FAMILY HISTORY: Positive for stroke. REVIEW OF SYSTEMS: Difficult to initiate sleep, multiple awakenings from sleep. No fevers. No double vision. No recent chest pain. No shortness of breath. No abdominal pain. No bleeding episodes. No blood in the urine. No seizure episodes. PHYSICAL EXAMINATION: GENERAL: Pleasant 66-year-old lady without distress. VITAL SIGNS: BP 173/84, HR 97, RR 12, height 5 feet 4 inches, weight 225, body mass index 38.4, temperature 97.1, oxygen saturation at room air 97%. HEENT: PERRLA, EOMI, evaluation of oropharynx showed tongue protrudes midline. Low position of soft palate; Mallampati III. NECK: Supple, no JVD. Thyroid is not palpable. Neck is wide; 17 inches in circumference. LUNGS: Clear to percussion and to auscultation. Good air exchange. No wheezing or rhonchi. HEART: S1, S2 regular. No murmurs, gallops, or rubs. ABDOMEN: Soft and nontender. Bowel sounds are present. No organomegaly appreciated. EXTREMITIES: No clubbing or cyanosis. VALANCE CUTTER: Awake, alert, and oriented X3. Cranial nerves 2 to 7 intact. There is no fasciculation or atrophy. noted. No focal deficits observed. IMPRESSION: 1. Snoring, multiple awakenings from sleep, low position of soft palate, Mallampati III, wide neck, 17 inches in circumference; obstructive sleep apnea-hypopnea syndrome. 2. Difficulties initiating sleep, psychophysiological insomnia and insomnia secondary to pain in the body. 3. Hypertension. 4. History of fibromyalgia. 5. Headaches. 6. Restless leg symptoms. 7. Back problems. 8. Sciatic nerve problems. 9. Status post tonsillectomy. 10.Status post partial hysterectomy. 11.Hot flashes; perimenopausal. PLAN: 1. Polysomnography for evaluation of patient's breathing during sleep and to check for possible leg movements. 2. CPAP/BiPAP titration if sleep study confirms obstructive sleep apnea-hypopnea syndrome. 3. Preferable position during sleep on the side. 4. No driving if patient feels any sleepiness. 5. I will see patient for follow up visit to explain results of testing and following plan. Thank you very much for referring this patient for consultation. Sincerely, Marco Hair MD, PhD, FAASM Diplomat of [employer] Sleep Medicine [employer] of [employer] [facility] [place] MMODL / SERINAN: [id number] /
== END ==
LOC: SLEEP 14:48
PROVIDERS: ATTEND Internal Medicine
DX: G47.33 Obstructive sleep apnea (adult) (pediatric) (principal); I10 Essential (primary) hypertension; G25.81 Restless legs syndrome; M53.80 Other specified dorsopathies, site unspecified; M54.30 Sciatica, unspecified side; Z90.710 Acquired absence of both cervix and uterus; F51.04 Psychophysiologic insomnia; G47.01 Insomnia due to medical condition; Z90.09 Acquired absence of other part of head and neck; N95.1 Menopausal and female climacteric states; Z87.39 Personal history of other diseases of the musculoskeletal system and connective tissue; F17.200 Nicotine dependence, unspecified, uncomplicated; Z88.5 Allergy status to narcotic agent
CPT/HCPCS: 99211